=== PATIENT | female | born 1985 ===

== ENCOUNTER 2017-05-27 19:52 | Emergency (ER) | payer MEDICAID ==
[2017-05-27] MEDS ORDERED: KETOROLAC 30 MG/ML VIAL IVP ONE (20:18)
[2017-05-27] MEDS ORDERED: 0.9 % SODIUM CHLORIDE 1,000 ML BAG IV ONE (20:20)
[2017-05-27 20:32] LABS: EOS % 1.7 % (0-6); GRAN % 45.9 % (47-80); HEMATOCRIT 37.8 % (35.0-47.0); HEMOGLOBIN 13.6 gm/dl (11.6-16.0); LYMPH % 44.9 % (16-45); MEAN CELL VOLUME 89.8 fl (81-97); MEAN CORPUSCULAR HEMOGLOBIN 32.3 pg (27-33); MEAN PLATELET VOLUME 11.4 fl (7.4-10.4); MONO % 7.5 % (0-9); PLATELET COUNT 183 K/uL (130-400); RED BLOOD COUNT 4.21 M/uL (3.80-5.40); RED CELL DISTRIBUTION WIDTH 12.3 % (11.5-14.5); WHITE BLOOD COUNT W/O DIFF 9.1 K/uL (4.2-12.2)
[2017-05-27 20:49] LABS: ALB/GLOB RATIO 1.7 (1.1-1.8); ALBUMIN 4.4 g/dL (4.0-5.0); ALKALINE PHOSPHATASE 34 U/L (35-104); ALT/SGPT 17 U/L (<33); AST/SGOT 15 U/L (10.0-35.0); BLOOD UREA NITROGEN 29.2 mg/dL (12.6-42.6); CKMB 1.5 ng/mL (<3.77); CREATINE PHOSPHOKINASE 93 U/L (26-192); CREATININE 0.5 mg/dL (0.5-0.9); EST GLOMERULAR FILTRATION RATE > 60 mL/min; GLUCOSE,RANDOM 85 mg/dL (74-109); LIPASE 21 U/L (13-60)
[2017-05-27] MEDS ORDERED: HYDROCODONE/APAP 5/325MG TABLET PO ONE (21:34)
[2017-05-27] MEDS ORDERED: CYCLOBENZAPRINE 10MG TABLET PO ONE (21:34)
--- NOTE | 2017-05-27 21:41 | Emergency Department Record ---
History of Present Illness - General Chief Complaint: Chest Pain Stated Complaint: CHEST PAIN Time Seen by Provider: 05/27/17 20:13 Source: Patient Mode of Arrival: Wheelchair Limitations: No limitations - History of Present Illness Initial Comments: pt woke up with pain in her back that wraps around to the anterior chest. movement makes it worse as well as palpation. MD Complaint: Chest pain, Other (back pain) Onset/Timin -: Week(s) Onset: During rest Pain Location: Other Pain Radiation: Back Severity: Moderate Quality: Sharp Consistency: Intermittent Improves With: Nothing Worsens With: Inspiration Treatments Prior to Arrival: None - Related Data On Oral Contraceptives: No (Mirena IUD) Previous Rx's Medication Instructions Recorded Cyclobenzaprine HCl [Flexeril] 10 mg PO TID #10 tablet 05/27/17 Hydrocodone/Acetaminophen [[place] 1 each PO Q6HR #7 tablet 05/27/17 5-325 Tablet] Ibuprofen [Motrin 600Mg] 600 mg PO Q6H #14 tablet 05/27/17 Allergies Allergy/AdvReac Type Severity Reaction Status Date / Time No Known Allergies Allergy Unverified 06/17/16 16:37 Travel Screening - Travel/Exposure Within Last 30 Days Have you traveled within the last 30 days?: No - Travel Symptoms Symptom Screening: None Review of Systems Reviewed: No additional complaints except as noted below Constitutional: Reports: As per HPI. Denies: Chills, Fever, Malaise, Night sweats, Weakness, Weight change Eyes: Reports: As per HPI. Denies: Eye discharge, Eye pain, Photophobia, Vision change ENT: Reports: As per HPI. Denies: Congestion, Dental pain, Ear pain, Epistaxis , Hearing loss, Throat pain Respiratory: Reports: As per HPI. Denies: Cough, Dyspnea, Hemoptysis, Stridor, Wheezes Cardiovascular: Reports: As per HPI. Denies: Arrhythmia, Chest pain, Dyspnea on exertion, Edema, Murmurs, Orthopnea, Palpitations, Paroxysmal nocturnal dyspnea, Rheumatic Fever, Syncope Endocrine: Reports: As per HPI. Denies: Fatigue, Heat or cold intolerance, Polydipsia, Polyuria Gastrointestinal: Reports: As per HPI. Denies: Abdominal pain, Constipation, Diarrhea, Hematemesis, Hematochezia, Melena, Nausea, Vomiting Genitourinary: Reports: As per HPI. Denies: Abnormal menses, Discharge, Dyspareunia, Dysuria, Frequency, Hematuria, Incontinence, Retention, Urgency Musculoskeletal: Reports: As per HPI. Denies: Arthralgia, Back pain, Gout, Joint swelling, Myalgia, Neck pain Skin: Reports: As per HPI. Denies: Bruising, Change in color, Change in hair/ nails, Lesions, Pruritus, Rash Neurological: Reports: As per HPI. Denies: Abnormal gait, Confusion, Headache, Numbness, Paresthesias, Seizure, Tingling, Tremors, Vertigo, Weakness Psychiatric: Reports: As per HPI. Denies: Anxiety, Auditory hallucinations, Depression, Homicidal thoughts, Suicidal thoughts, Visual hallucinations Hematological/Lymphatic: Reports: As per HPI. Denies: Anemia, Blood Clots, Easy bleeding, Easy bruising, Swollen glands Past Medical History - SOCIAL HISTORY Smoking Status: Never smoker Alcohol Use: None Drug Use: None - RESPIRATORY Hx Respiratory Disorders: No - CARDIOVASCULAR Hx Cardio Disorders: No - NEURO Hx Neuro Disorders: No - GI Hx GI Disorders: No - Hx Genitourinary Disorders: No - ENDOCRINE Hx Endocrine Disorders: No - MUSCULOSKELETAL Hx Musculoskeletal Disorders: No - PSYCH Hx Psych Problems: No - HEMATOLOGY/ONCOLOGY Hx Hematology/Oncology Disorders: No Family Medical History Any Significant Family History?: No Family Hx Comment (NOT TO BE USED IN PLACE OF ITEMS BELOW): DENIES Physical Exam - General General Appearance: Alert, Oriented x3, Cooperative, Mild distress - Head Head exam: Normal inspection - Eye Eye exam: Normal appearance, PERRL, EOMI Pupils: Normal accommodation - ENT ENT exam: Normal exam, Mucous membranes moist, Normal external ear exam, Normal orophraynx Ear exam: Normal external inspection. negative: External canal tenderness Nasal Exam: Normal inspection. negative: Discharge, Sinus tenderness Mouth exam: Normal external inspection, Tongue normal Teeth exam: Normal inspection. negative: Dental caries Throat exam: Normal inspection. negative: Tonsillar erythema, Tonsillar exudate - Neck Neck exam: Normal inspection, Full ROM. negative: Tenderness - Respiratory Respiratory exam: Normal lung sounds bilaterally, Chest wall tenderness. negative: Respiratory distress - Cardiovascular Cardiovascular Exam: Regular rate, Normal rhythm, Normal heart sounds - GI/Abdominal GI/Abdominal exam: Soft, Normal bowel sounds. negative: Tenderness - Rectal Rectal exam: Deferred - exam: Deferred - Extremities Extremities exam: Normal inspection, Full ROM, Normal capillary refill. negative: Tenderness - Back Back exam: Reports: Normal inspection, Full ROM, Tenderness. 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 ] Respiratory 16 16 Rate Blood Pressure 133/88 115/61 [Left Arm] Pulse Ox 100 99 Medical Decision Making - Lab Data Result diagrams: 05/27/17 20:10 05/27/17 20:10 Lab Results 05/27/17 05/27/17 05/27/17 Range/Units 20:10 20:10 20:10 WBC 9.1 (4.2-12.2) K/uL RBC 4.21 (3.80-5.40) M/uL Hgb 13.6 (11.6-16.0) gm/dl Hct 37.8 (35.0-47.0) % MCV 89.8 (81-97) fl MCH 32.3 (27-33) pg MCHC 36.0 (32-36) g/dl RDW 12.3 (11.5-14.5) % Plt Count 183 (130-400) K/uL MPV 11.4 H (7.4-10.4) fl Gran % 45.9 L (47-80) % Lymphocytes % 44.9 (16-45) % Monocytes % 7.5 (0-9) % Eosinophils % 1.7 (0-6) % Basophils % 0.0 (0-6) % D-Dimer < 0.19 (0-0.59) mg/L FEU Sodium 135 L (136-145) mmol/L Potassium 3.5 (3.4-4.5) mmol/L Chloride 101 (98-107) mmol/L Carbon Dioxide 22.0 (22-29) mmol/L Anion Gap 12.0 (7-16) BUN 29.2 (12.6-42.6) mg/dL Creatinine 0.5 (0.5-0.9) mg/dL Estimated GFR > 60 mL/min Random Glucose 85 (74-109) mg/dL Calcium 8.7 (8.6-10.0) mg/dL Total Bilirubin 0.60 (0.2-1.0) mg/dL AST 15 (10.0-35.0) U/L ALT 17 (<33) U/L Alkaline Phosphatase 34 L (35-104) U/L Creatine Kinase 93 (26-192) U/L CK-MB (CK-2) 1.5 (<3.77) ng/mL Troponin I 0.30 (0.00-0.300) ng/mL Total Protein 7.0 (6.6-8.7) g/dL Albumin 4.4 (4.0-5.0) g/dL Globulin 2.6 (1.4-4.8) gm/dL Albumin/Globulin Ratio 1.7 (1.1-1.8) Lipase 21 (13-60) U/L Disposition Disposition: Discharge Clinical Impression: Chest wall tenderness Disposition: Home, Self-Care Condition: (1) Good Instructions: Chest Wall Pain (ED), Thoracic Back Strain (ED) Additional Instructions: follow up with family doctor. return sooner if worse. rotate ice and moist heat. Prescriptions: Hydrocodone/Acetaminophen [[place] 5-325 Tablet] 1 each PO Q6HR #7 tablet Cyclobenzaprine HCl [Flexeril] 10 mg PO TID #10 tablet Ibuprofen [Motrin 600Mg] 600 mg PO Q6H #14 tablet Forms: Patient Portal Access Quality - Quality Measures Quality Measures: N/A - Blood Pressure Screening Does Patient Have Any of the Following: No Blood Pressure Classification: Normal BP Reading Systolic Measurement: 115 Diastolic Measurement: 61 Screening for High Blood Pressure: < Normal BP, F/U Not Required > [G8749]
[2017-05-28 04:37] LABS: TROPONIN I < 0.30 ng/mL (0.00-0.300)
--- NOTE | 2017-05-28 13:15 | RADIOLOGY REPORT ---
EXAM: CHEST, TWO VIEWS HISTORY: PATIENT FEELING RUN DOWN FOR A FEW WEEKS. SHARP RADIATING CHEST PAIN. TECHNIQUE: PA and lateral views of the chest were obtained. Comparison: None. FINDINGS: The heart size is normal. Mild right apical pleural thickening. There is questionably a tiny right apical pneumothorax superolaterally on the right. Follow-up inspiration and expiration PA study might be useful. No definite acute infiltrate is seen and no pleural effusion evident. IMPRESSION: 1. QUESTIONABLE TINY APICAL PNEUMOTHORAX SUPEROLATERALLY ON THE RIGHT. FOLLOW- UP INSPIRATION AND EXPIRATION PA VIEWS MAY BE USEFUL. 2. MILD RIGHT APICAL PLEURAL THICKENING. 3. NO DEFINITE INFILTRATE IDENTIFIED. JOB NUMBER: [id number] MTDD
== END 2017-05-27 21:56 | disposition home or self-care (01) ==
LOC: ER 19:52
DX: R07.89 Other chest pain (principal)
CPT/HCPCS: 99284 ×2; 96374; 82550; 83690; 85025; 82553; 84484; 80053; 85379; 71020; 93005; 93010; J1885; J7030

== ENCOUNTER 2017-07-01 10:49 | Emergency (ER) | payer MEDICAID ==
[2017-07-01] MEDS ORDERED: ONDANSETRON HCL IV 4 MG/2 ML VIAL IV ONE (11:19)
[2017-07-01] MEDS ORDERED: 0.9 % SODIUM CHLORIDE 1,000 ML BAG IV ONE (11:19)
--- NOTE | 2017-07-01 11:26 | Emergency Department Record ---
History of Present Illness - General Chief Complaint: Abdominal Pain Stated Complaint: ABD PAIN Time Seen by Provider: 07/01/17 11:19 Source: Patient, Family Mode of Arrival: Ambulatory Limitations: No limitations - History of Present Illness Initial Comments: 32 yo female presents with right lower abdominal pain and right flank pain. The pain started about 5:30am. No fevers or chills. No nausea or vomiting. She states it is sharp and difficult to find a position of comfort. No history of renal stones or significant ovarian cysts or [employer] disease. No changes in bowel movements. Yesterday was a normal day without pain. MD Complaint: Abdominal pain, Flank pain Onset/Timin -: Days(s) Location: R Flank, RLQ Radiation: R flank Severity: Moderate Quality: Aching Consistency: Constant - Related Data Home Medications Medication Instructions Recorded Confirmed Last Taken No Home Med [NO HOME MEDS] 07/01/17 07/01/17 Unknown Allergies Allergy/AdvReac Type Severity Reaction Status Date / Time No Known Allergies Allergy HYPERSENSIT Verified 07/01/17 11:34 IVITY Travel Screening - Travel/Exposure Within Last 30 Days Have you traveled within the last 30 days?: No - Travel/Exposure Within Last Year Have you traveled outside the [place] in the last year?: No - Additonal Travel Details Have you been exposed to anyone with a communicable illness?: No - Travel Symptoms Symptom Screening: None Review of Systems Constitutional: Denies: Chills, Fever, Malaise, Weakness Eyes: Denies: Eye discharge, Eye pain, Photophobia, Vision change ENT: Denies: Congestion, Throat pain Respiratory: Denies: Cough Cardiovascular: Denies: Chest pain, Palpitations, Syncope Endocrine: Denies: Fatigue Gastrointestinal: Reports: As per HPI, Abdominal pain. Denies: Diarrhea, Nausea , Vomiting Genitourinary: Denies: Dysuria, Urgency Musculoskeletal: Reports: As per HPI, Back pain. Denies: Arthralgia Skin: Denies: Bruising, Change in color, Rash Neurological: Denies: Headache Psychiatric: Denies: Anxiety Hematological/Lymphatic: Denies: Blood Clots, Easy bleeding, Easy bruising, Swollen glands Past Medical History - SOCIAL HISTORY Smoking Status: Current every day smoker Alcohol Use: None Drug Use: None - RESPIRATORY Hx Respiratory Disorders: No - CARDIOVASCULAR Hx Cardio Disorders: No - NEURO Hx Neuro Disorders: No - GI Hx GI Disorders: No - Hx Genitourinary Disorders: No - ENDOCRINE Hx Endocrine Disorders: No - MUSCULOSKELETAL Hx Musculoskeletal Disorders: No - PSYCH Hx Psych Problems: No - HEMATOLOGY/ONCOLOGY Hx Hematology/Oncology Disorders: No Family Medical History Any Significant Family History?: Yes Family Hx Comment (NOT TO BE USED IN PLACE OF ITEMS BELOW): DENIES Physical Exam - General General Appearance: Alert, Oriented x3, Cooperative, No acute distress, Other ( No distress, appears comfortable) Limitations: No limitations - Head Head exam: Atraumatic, Normocephalic, Normal inspection - Eye Eye exam: Normal appearance, PERRL. negative: Conjunctival injection, Periorbital swelling - ENT ENT exam: Normal exam, Mucous membranes moist Ear exam: Normal external inspection Nasal Exam: Normal inspection Mouth exam: Normal external inspection - Neck Neck exam: Normal inspection - Respiratory Respiratory exam: Normal lung sounds bilaterally. negative: Respiratory distress - Cardiovascular Cardiovascular Exam: Regular rate, Normal rhythm, Normal heart sounds - GI/Abdominal GI/Abdominal exam: Soft, Tenderness (Mild tenderness in the RLQ in the pelvis and right flank, soft abdomen, mild examination findings). negative: Distended , Guarding, Rebound, Rigid - Rectal Rectal exam: Deferred - exam: Adnexal tenderness (R) (mild), Normal bimanual exam. negative: Abnormal external exam, Adnexal mass (L), Adnexal mass (R), Adnexal tenderness ( L), Cervical discharge, cervical motion tenderness, Normal external exam, Vaginal bleeding, Vaginal discharge, Vaginal erythema - Extremities Extremities exam: Normal inspection, Full ROM, Normal capillary refill. negative: Tenderness - Back Back exam: Reports: CVA tenderness (R), Full ROM - Neurological Neurological exam: Alert, Normal gait, Oriented X3 - Psychiatric Psychiatric exam: Normal affect, Normal mood. negative: Agitated, Anxious - Skin Skin exam: Dry, Intact, Normal color, Warm Course Vital Signs 07/01/17 11:11 Temperature 97.9 F Pulse Rate 65 Respiratory 18 Rate Blood Pressure 112/72 Pulse Ox 100 - Reevaluation(s) Reevaluation #1: 07/01/17 11:50 No acute changes on the CBC or UA The pelvic examination was performed She does have right adnexal tenderness, no obvious mass, no discharge or bleeding Given the adnexal tenderness I recommend pelvic US as the initial imaging. 07/01/17 12:32 The CMP, HCG, Wet Prep were negative, HCG Negative. 07/01/17 14:42 The US was read as bilateral follicles otherwise negative. The patient reports her pain is improved at this time. I discussed the options of CT scan at this time or observation at home with return for a scheduled visit or sooner if worse. . We discussed normal labs, normal UA, normal temperature and the risks of radiation with US. 07/01/17 14:50 07/01/17 14:59 The patient is comfortable and will go home with instructions to return if the pain returns, fever, nausea or any concerns Medical Decision Making - Lab Data Result diagrams: 07/01/17 11:28 07/01/17 11:28 Disposition Disposition: Discharge Clinical Impression: Pelvic pain, Right flank pain Disposition: Home, Self-Care Condition: (1) Good Instructions: Abdominal Pain (ED) Additional Instructions: Return immediately to the ER if your pain increases. Return in the next 6-8 hours if the pain persists to be evaluated for possible CT scan Stay well hydrated Forms: Patient Portal Access Time of Disposition: 15:00 Quality - Quality Measures Quality Measures: N/A - Blood Pressure Screening Does Patient Have Any of the Following: No Blood Pressure Classification: Normal BP Reading Systolic Measurement: 100 Diastolic Measurement: 61 Screening for High Blood Pressure: < Normal BP, F/U Not Required > [G8783] Pre-Hypertensive Follow-up Interventions: Referral to alternative/primary care provider.
[2017-07-01 11:36] LABS: BASO % 0.1 % (0-6); EOS % 1.2 % (0-6); HEMOGLOBIN 14.1 gm/dl (11.6-16.0); LYMPH % 28.5 % (16-45); MEAN CELL VOLUME 90.9 fl (81-97); MEAN CORPUSCULAR HGB CONC 35.3 g/dl (32-36); MEAN PLATELET VOLUME 10.9 fl (7.4-10.4); MONO % 6.2 % (0-9); PLATELET COUNT 198 K/uL (130-400); RED CELL DISTRIBUTION WIDTH 12.2 % (11.5-14.5)
[2017-07-01] MEDS ORDERED: MORPHINE SULFATE 5 MG/ML PFS IVP ONE (11:36)
[2017-07-01 11:38] LABS: URINE APPEARANCE CLEAR; URINE BILIRUBIN NEGATIVE (NEGATIVE); URINE BLOOD NEGATIVE (NEGATIVE); URINE COLOR YELLOW; URINE GLUCOSE (UA) NEGATIVE (NEGATIVE); URINE KETONE NEGATIVE (NEGATIVE); URINE LEUKOCYTE ESTERASE NEGATIVE (NEGATIVE); URINE NITRITE NEGATIVE (NEGATIVE); URINE PROTEIN NEGATIVE (NEGATIVE); URINE UROBILINOGEN 0.2 E.U./dL (0.20 - 1.00)
[2017-07-01 11:51] LABS: ALB/GLOB RATIO 1.8 (1.1-1.8); ALBUMIN 4.6 g/dL (4.0-5.0); ALKALINE PHOSPHATASE 39 U/L (35-104); ALT/SGPT 25 U/L (<33); AST/SGOT 22 U/L (10.0-35.0); BLOOD UREA NITROGEN 8 mg/dL (6-20); CREATININE 0.5 mg/dL (0.5-0.9); EST GLOMERULAR FILTRATION RATE > 60 mL/min; GLUCOSE,RANDOM 92 mg/dL (74-109); LIPASE 16 U/L (13-60); TOTAL PROTEIN 7.2 g/dL (6.6-8.7)
[2017-07-01 12:18] LABS: HCG,QUALITATIVE URINE NEGATIVE (NEGATIVE)
[2017-07-01] MEDS ORDERED: KETOROLAC 30 MG/ML VIAL IVP ONE (14:12)
--- NOTE | 2017-07-02 11:16 | ULTRASOUND REPORT ---
EXAM: ULTRASOUND PELVIC W TRANSVAG (NON-OB) HISTORY: PELVIC PAIN. TECHNIQUE: Transabdominal and transvaginal sonographic images of the pelvis. COMPARISON: None. FINDINGS: On transabdominal images, the uterus measures 8.0 x 4.1 x 5.2 cm. The myometrium is homogeneous. The ovaries and endometrium are not well seen transabdominally. On transvaginal imaging, the myometrium is homogeneous. The endometrium measures 4.5 mm in thickness. The right ovary measures 2.6 x 2.0 x 3.1 cm, the left ovary 3.5 x 1.8 x 2.5 cm. Doppler and spectral analysis with color-flow is utilized. Arterial and venous flow to both ovaries. Bilateral ovarian follicles. No solid adnexal mass. No free fluid. Note is also made of an IUD in place, partially seen. There is a prior scar associated with the anterior uterus. IMPRESSION: 1. IUD IN PLACE. 2. BILATERAL OVARIAN FOLLICLES. JOB NUMBER: [id number] MTDD
== END 2017-07-01 15:30 | disposition home or self-care (01) ==
LOC: ER 10:49
DX: R10.2 Pelvic and perineal pain (principal); R10.31 Right lower quadrant pain
CPT/HCPCS: 99284 ×2; 96374; 96375; 83690; 85025; 80053; 81003; 81025; 76856; 76830; Q0111; J1885; J2405; J2270; 87210; J7030